=== PATIENT | female | born 1950 | race Caucasian/White ===

== ENCOUNTER 2018-12-19 06:55 | Day surgery (SDC) | payer MEDICARE, OTHER ==
[2018-12-19] MEDS ORDERED: LIDOCAINE 100 MG SYRINGE (08:42)
[2018-12-19] MEDS ORDERED: PROPOFOL 20 ML (08:42)
== END 2018-12-19 12:44 | disposition home or self-care (01) ==
LOC: GIL 06:55
DX: R19.4 Change in bowel habit (principal); K64.8 Other hemorrhoids; K57.30 Diverticulosis of large intestine without perforation or abscess without bleeding; K62.1 Rectal polyp; K44.9 Diaphragmatic hernia without obstruction or gangrene; K21.0 Gastro-esophageal reflux disease with esophagitis; J45.909 Unspecified asthma, uncomplicated; Z86.73 Personal history of transient ischemic attack (TIA), and cerebral infarction without residual deficits; Z79.02 Long term (current) use of antithrombotics/antiplatelets; I12.9 Hypertensive chronic kidney disease with stage 1 through stage 4 chronic kidney disease, or unspecified chronic kidney disease; N18.9 Chronic kidney disease, unspecified
CPT/HCPCS: 43239; 88305; 88312